=== PATIENT | female | born 1975 | race Caucasian/White ===

== ENCOUNTER → 2021-07-25 08:50 | Outpatient (CLI) | payer MEDICAID, SELFPAY ==
--- NOTE | 2021-07-25 | ECG_ITS ---
APPROVED REPORT Exam: Resting ECG HR:75 bpm ECG Measurements Heart Rate 75 AXES [place] 149 P 8 QRSd 89 QRS 15 QT 390 T 5 QTc 418 Conclusion SINUS RHYTHM WITH SINUS ARRHYTHMIA NORMAL ECG UNCONFIRMED REPORT Electronically signed by : Sha Desai MD 07/25/2021 17:55:15
--- NOTE | 2021-07-25 09:00 | XR_ITS ---
FINAL REPORT CLINICAL HISTORY: OSTEOARTHRITIS,OBESITY. Pre-bariatric surgery nutrition evaluation. Severe obesity BMI>40 FINDINGS: Two views of the chest were obtained. The heart size and pulmonary vascularity are within normal limits. The mediastinum is normal. No acute pulmonary abnormality is identified. There is no pneumothorax. The bony thorax is intact. IMPRESSION: No active cardiopulmonary disease. Reviewed, Interpreted and Dictated by Allan Maza III, MD Transcribed by Gregorio Woods Authenticated by Allan Maza III, MD on 07/25/2021 10:41:[address] [facility]
[2021-07-25 09:55] LABS: Basophils # 0.1 K/mm3 (0-0.2); Basophils % 1.3 % (0.1-2.0); Eosinophils # 0.1 K/mm3 (0.0-0.4); Eosinophils % 2.5 % (0.1-12.0); Hematocrit 41.6 % (37.0-47.0); Hemoglobin 13.7 g/dL (12.2-16.2); Lymphocytes # 1.5 K/mm3 (0.7-4.5); Lymphocytes % 26.6 % (10-50); Mean Corpuscular HGB Conc 32.9 g/dL (31.8-35.4); Mean Corpuscular Hemoglobin 30.9 pg (27.0-31.2); Mean Platelet Volume 7.2 fl (7.4-10.4); Monocytes # 0.3 K/mm3 (0.1-1.0); Monocytes % 5.4 % (1.7-9.3); Neutrophils # 3.6 K/mm3 (1.8-7.8); Neutrophils % 64.3 % (37.0-80.0); Platelet Count 383 K/mm3 (142-424); Red Blood Count 4.43 M/mm3 (4.20-5.40); Red Cell Distribution Width 14.3 % (11.5-17.5); White Blood Count 5.6 K/mm3 (4.8-10.8)
[2021-07-25 10:05] LABS: Alanine Aminotransferase 30 U/L (12-78); Albumin/Globulin Ratio 1.3 (1.1-1.8); Alkaline Phosphatase 65 U/L (38-126); Anion Gap 10.3 mEq/L (5-15); Aspartate Amino Transferase 28 U/L (14-36); Blood Urea Nitrogen 15 mg/dl (7-17); Calcium 9.1 mg/dl (8.4-10.2); Carbon Dioxide 27 mmol/L (22.0-30.0); Chloride 105 mmol/L (98-107); Chol/HDL Ratio 3.8 (1-3.5); Cholesterol 147 mg/dl (140-200); Estimated Glomerular Filt Rate 91 ml/min (>60); GFR (African American) 110 ML/MIN (>60); Glucose 97 mg/dl (74-100); HDL Cholesterol 39 mg/dl (40-60); Phosphorous 3.8 mg/dl (2.5-4.5); Potassium 4.3 mmoL/L (3.5-5.1); Sodium 138 mmol/L (136-145); Triglycerides 105 mg/dl (30-150); VLDL Cholesterol 21 mg/dL (0-40)
[2021-07-25 10:16] LABS: Direct LDL Cholesterol 79.31 mg/dL (100-129)
[2021-07-25 10:17] LABS: Intact Parathyroid Hormone 35.3 pg/mL (7.5-53.5)
[2021-07-25 10:22] LABS: 25-OH Vitamin D, Total 25.4 ng/mL (30-100)
[2021-07-25 10:31] LABS: Iron 87 ug/dL (37-170)
[2021-07-25 11:07] LABS: Ferritin 54.4 ng/ml (6.24-137)
[2021-07-25 11:13] LABS: Folate 5.47 ng/mL
[2021-07-26 12:13] LABS: Prealbumin 19 mg/dL (12-34)
[2021-07-30 02:07] LABS: Methylmalonic Acid 225 nmol/L (0-378)
[2021-08-03 01:09] LABS: Vitamin E Alpha Tocopherol 9.9 mg/L (7.0-25.1); Vitamin E Gamma Tocopherol 1.2 mg/L (0.5-5.5)
[2021-08-06 08:21] LABS: Vitamin B1 123.2 nmol/L (66.5-200.0)
[2021-08-06 11:17] LABS: Vitamin A 31.6 ug/dL (20.1-62.0)
== END ==
PROVIDERS: PCP Nurse Practitioner Family; Visit Provider Physician Assistant
DX: M17.9 Osteoarthritis of knee, unspecified (principal); E66.01 Morbid (severe) obesity due to excess calories; Z68.38 Body mass index [BMI] 38.0-38.9, adult; Z71.3 Dietary counseling and surveillance; E55.9 Vitamin D deficiency, unspecified
CPT/HCPCS: 36415; 71046; 80053; 80061; 82131; 82306; 82728; 82746; 83036; 83540; 83735; 83970; 84100; 84134; 84425; 84443; 84446; 84590; 85025; 93005

== ENCOUNTER → 2021-08-01 14:48 | Outpatient (CLI) | payer MEDICAID, SELFPAY ==
--- NOTE | 2021-08-01 14:49 | US_ITS ---
FINAL REPORT CLINICAL HISTORY: US TV GOLD BEATER for Pelvic Pain FINDINGS: US TRANSVAGINAL Transvaginal sonographic images of the pelvis were obtained. The uterus is enlarged measuring 10.4 x 7.2 x 6.1 cm. The endometrium is thickened measuring 15 mm. No uterine mass is identified. The right ovary measures 2.4 cm in length and left ovary measures 2.4 cm in length. Normal blood flow seen to the ovaries. Small follicles are present. There is a 1.7 cm probable complex cyst in the left ovary. There is a very small amount of free fluid which may be physiologic or reactive. IMPRESSION: Enlarged uterus. Thickened endometrium. Probable complex cyst in the left ovary. Reviewed, Interpreted and Dictated by Allan Maza III, MD Transcribed by Brooklynn Loza Authenticated by Allan Maza III, MD on 08/01/2021 04:36:51 PM [facility]
== END ==
PROVIDERS: PCP Nurse Practitioner Family; Visit Provider Obstetrics & Gynecology
DX: R10.2 Pelvic and perineal pain (principal)
CPT/HCPCS: 76830

== ENCOUNTER → 2021-08-24 08:40 | Outpatient (CLI) | payer MEDICAID, SELFPAY ==
--- NOTE | 2021-08-24 08:43 | XR_ITS ---
FINAL REPORT CLINICAL HISTORY: knee pain FINDINGS: LEFT KNEE: Three views of the left knee were obtained. There is no acute fracture or dislocation. There is mild degenerative change with mild medial compartment narrowing. There is no joint effusion. Soft tissues are unremarkable. IMPRESSION: Degenerative change with no acute bony abnormality. Reviewed, Interpreted and Dictated by Allan Maza III, MD Transcribed by Ramona Card Authenticated and [facility]
--- NOTE | 2021-08-24 08:43 | XR_ITS ---
FINAL REPORT CLINICAL HISTORY: knee pain FINDINGS: Three views of the right knee reveal no evidence of fracture or dislocation. The bony alignment is normal. There is mild degenerative change. There is no evidence of joint effusion. No localized soft tissue abnormality is identified. IMPRESSION: Degenerative with no acute abnormality identified. Reviewed, Interpreted and Dictated by Allan Maza III, MD Transcribed by Ramona Card Authenticated and [facility]
== END ==
PROVIDERS: PCP Nurse Practitioner Family; Visit Provider Orthopaedic Surgery
DX: M25.561 Pain in right knee (principal); M25.562 Pain in left knee
CPT/HCPCS: 73562

== ENCOUNTER 2021-08-24 11:03 | Outpatient (RCR) | payer MEDICAID, SELFPAY | END 2021-08-24 12:00 | disposition home or self-care (01) | LOC: PT 11:03 | PROVIDERS: Visit Provider Orthopaedic Surgery | DX: M25.562 Pain in left knee (principal); M25.561 Pain in right knee | CPT/HCPCS: 97760 ==

== ENCOUNTER → 2021-09-07 10:47 | Outpatient (CLI) | payer MEDICAID, SELFPAY ==
--- NOTE | 2021-09-07 | CA_ITS ---
APPROVED REPORT EXAM: Comprehensive 2D, Doppler, and color-flow Echocardiogram Financial Analyst Accountant: Jessica Solorzano RT(R) Ht: 5 ft 3 in Wt: 247lbs BSA: 2.11 BP: 138/85 mmHg Indications: SOA, obesity, hyperlipidemia, preop bariatric surgery. 2D Dimensions LVOT 2.21 cm (M/F) 1.5-2.5 LVEF (Vásquez's) 51.80 % F: 54 - 74 LV Volume 136.70 mL F: 46 - 106 LV Volume Index 64.78 mL/m2 F: 29 - 61 LA Volume 38.80 mL LA Volume Index 18.38 mL/m2 (M/F) 16-34 M-Mode Dimensions RVDd 3.18 cm (0.9-2.6) LA Diam 3.83 cm (1.9-4.0) LVDd 4.59 cm (3.5-5.7) Ao Diam 3.19 cm (2.0-3.7) LVDs 3.34 cm (3.5-5.7) IVSd 1.05 cm (0.6-1.1) PWd 1.01 cm (0.6-1.1) EF (Teich) 53.10% FS 27.20% EDV (Teich) 96.80 mL ESV (Teich) 45.40 mL LV Diastology E Decel Time 187.00 (160-240 msec) E/A Ratio 1.1 MED E' 9.10 (< 7 cm/sec) E'/MED E' Ratio 8.63 (>14) LAT E' 12.40 (<10 cm/sec) E/LAT E' Ratio 6.33 (>14) Mitral Valve MV E Max Layo. 79.00 (40-130 cm/s) MV A Velocity 70.00 (40-130 cm/s) E/A Ratio 1.12 MV Decel. Time 187.00 (160-240 ms) MV PHT 55.00 ms Tricuspid Valve TR P. Velocity 219.00 cm/s RAP Estimate 10.00 mmHg RVSP 29.30 mmHg Left Ventricle Left atrium is normal size, left ventricle is normal size, there is no concentric left ventricular hypertrophy, estimated ejection fraction 55% with no regional wall motion abnormality, diastolic parameters are within normal range. Right Ventricle Right atrium and right ventricle are normal size and contractility. Aortic Valve Aortic valve is grossly normal, there is no aortic stenosis or aortic insufficiency. Mitral Valve Mitral valve grossly normal, there is trace mitral regurgitation. Tricuspid Valve CalculationTricuspid grossly normal, there is trace tricuspid regurgitation, tricuspid regurgitation jet velocity is inadequate of the right ventricular systolic pressure. Pulmonic Valve Pulmonic valve is poorly visualized. Great Vessels Aortic root is normal size. Inferior vena cava is normal 7 normal inspiratory collapse. Pericardium No significant pericardial effusion noted. Conclusion 1. Normal left ventricular size, preserved left ventricular systolic function, estimated ejection fraction 55% with no regional wall motion abnormality, diastolic parameters are within normal range. 2. Trace mitral and tricuspid regurgitation. 3. No significant pericardial effusion. 4. Inferior vena cava is normal size with normal inspiratory collapse. Electronically signed by : Helder Paz MD 09/07/2021 13:46:10
== END ==
PROVIDERS: PCP Nurse Practitioner Family; Visit Provider Nurse Practitioner
DX: R06.09 Other forms of dyspnea (principal)
CPT/HCPCS: 93306

== ENCOUNTER 2021-10-10 09:00 | Outpatient (RCR) | payer MEDICAID, SELFPAY ==
--- NOTE | 2021-08-29 10:28 | HMH.PTOPEV ---
PT Outpatient Evaluation Rehab PT Outpatient Evaluation Start: 08/29/21 07:57 Freq: Status: Active Protocol: Document 08/29/21 07:59 REGINA (Rec: 08/29/21 10:27 REGINA [id number]) Electronically Signed By Bria Dumont, ARNEL 08/29/21 07:59 Outpatient Therapy Subjective History Subjective History Pt is a 46 y/o female that reports chronic L>R knee pain. 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 Pt reports she had 2 knee scopes on the right knee and has been receiving gel and cortisone injection for the past 3 years which give her about 6 months relief. Pt reports she recently had an xray showing mild degenerative changes of the inside of both knees. Pt reports she received gel injections and knee sleeves last week which have both helped. Pt denies current pain due to injections. Pt reports previous constant bilateral medial knee pain with catching /clicking and sense of instabiltiy with going down stairs and stepping on uneven surfaces. Pt reports she has 1 flight of stairs in her home and has to use a step to pattern due to pain/safety. Pt reports she also walks 1x week for 20-25 with pain following and is only able to stand ~10 minutes without increased pain. 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
--- NOTE | 2021-09-28 10:04 | HMH.RHREAS ---
Rehab Reassessment Rehab OP Re-assessment Start: 09/28/21 08:11 Freq: Status: Active Protocol: Document 09/28/21 08:12 REGINA (Rec: 09/28/21 09:56 REGINA [id number]) Electronically Signed By Brai Dumont, PT 09/28/21 08:12 Rehab Re-assessment Subjective Subjective Pt reports the worse her pain has been within the last week was 3/10 with going up/down stairs. Pt reports she still has some pain going down the stairs. Pt reports she feels that she has improved 50% since starting PT. Pt reports she is able to stand for 10 minutes but no longer until her knees ache. Pt reports she is performing her HEP sometimes. Objective Objective Notes Knee AROM: R -1 to 115, L 0- 115 LE MMT: hip flexion 4/5, knee ext 5/5, knee flex 4+/5, DF 5/ 5, hip abd/ext 4/5 Stair navigation: reciprocal pattern with one HR with one minor LOB with self correction , antalgic gait and hesistancy Assessment Progress Assessment Progressing as Expected Assessment Notes Given pathology of condition involving knee arthritis pt is progressing as expected. Pt met most STG with exception of standing tolerance, traversing stairs, and tenderness to palpation. Pt would continue to benefit from skilled PT to further improve LE strength and balance/ proprioception to further improve functional activity tolerance for active lifestyle . Patient goals met ST/11 Goals Not Met TTP, traversing stiars with reciprocal pattern safely, standing tolerance Revised Goals Knee AROM to 0-115 since equal bilaterally for LTG Plan Plan Continue POC Frequency of Therapy 2 Duration of therapy 4 Time and Billing Re-Eval Time
== END 2021-10-10 09:05 | disposition home or self-care (01) ==
LOC: PT 09:00
PROVIDERS: PCP Nurse Practitioner Family; Visit Provider Orthopaedic Surgery
DX: M25.562 Pain in left knee (principal); M25.561 Pain in right knee
CPT/HCPCS: 97010; 97014; 97110; 97140; 97163; 97164; 97530; 97535; G0283

== ENCOUNTER → 2022-05-07 16:33 | Outpatient (CLI) | payer MEDICAID, SELFPAY ==
--- NOTE | 2022-05-07 16:33 | MM_ITS ---
PROCEDURE INFORMATION: Exam: MG Bilateral Screening 3D Mammography Exam date and time: 05/07/2022 4:23 PM Age: 46 years old Clinical indication: Screening. Her maternal great grandmother had breast cancer. TECHNIQUE: Imaging protocol: Bilateral Screening tomosynthesis and 2D mammography including computer-aided detection (CAD) when performed. COMPARISON: 1. MG MM MAMMO DIGITAL IRENE SCREEN BILAT 01/29/2021 3:40 PM 2. MG MM MAMMO DIGITAL IRENE SCREEN BILAT 01/14/2020 11:11 AM 3. MG MM MAMMO DIGITAL IRENE SCREEN BILAT 01/06/2019 9:00 AM FINDINGS: MAMMOGRAPHY: Breast composition: The breasts are heterogeneously dense, which may obscure small masses. Mass: None. Architectural distortion: None. Calcifications: No suspicious calcifications. Asymmetric density: None. Skin thickening: None. Axillary adenopathy: None. IMPRESSION: No mammographic evidence of malignancy. Annual screening is recommended unless otherwise clinically indicated. ASSESSMENT: BI-RADS Category 1: Negative
== END ==
PROVIDERS: PCP Nurse Practitioner Family; Visit Provider Obstetrics & Gynecology
DX: Z12.31 Encounter for screening mammogram for malignant neoplasm of breast (principal)
CPT/HCPCS: 77063; 77067

== ENCOUNTER 2023-02-09 13:51 | Emergency (ER) | payer MEDICAID, SELFPAY ==
[2023-02-09 13:53] VITALS: BP 124/79; PULSE 67; RESP 20; TEMP 36.8; O2SAT 98; BMI 34.5
--- NOTE | 2023-02-09 14:16 | PC.NURSE ---
Dr. Fischer at [facility] for pt eval
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
[2023-02-09 15:15] VITALS: BP 129/79; PULSE 77; RESP 18; TEMP 36.6
== END 2023-02-09 15:19 | disposition home or self-care (01) ==
PROVIDERS: Emergency Provider Emergency Medicine; PCP Nurse Practitioner Family
DX: S01.81XA Laceration without foreign body of other part of head, initial encounter (principal); W22.8XXA Striking against or struck by other objects, initial encounter; Z23 Encounter for immunization
CPT/HCPCS: 12011; 90715; 96372; 99283

== ENCOUNTER → 2023-03-19 12:29 | Outpatient (CLI) | payer MEDICAID, SELFPAY ==
--- NOTE | 2023-03-19 12:39 | ECG_ITS ---
APPROVED REPORT Exam: Resting ECG HR:56 bpm ECG Measurements Heart Rate 56 AXES NH 143 P 48 QRSd 92 QRS 75 QT 408 T 64 QTc 401 Conclusion SINUS BRADYCARDIA BORDERLINE ECG UNCONFIRMED REPORT Electronically signed by : Sha Desai MD 03/21/2023 08:02:21
== END ==
LOC: RT 12:29
PROVIDERS: PCP Nurse Practitioner Family; Visit Provider Orthopaedic Surgery
DX: Z01.818 Encounter for other preprocedural examination (principal); M17.0 Bilateral primary osteoarthritis of knee
CPT/HCPCS: 93005

== ENCOUNTER → 2023-03-20 07:07 | Outpatient (CLI) | payer MEDICAID, SELFPAY ==
[2023-03-20 07:22] LABS: Basophils % 0.5 % (0.1-2.0); Eosinophils # 0.1 K/mm3 (0.0-0.4); Eosinophils % 1.1 % (0.1-12.0); Hematocrit 38.1 % (37.0-47.0); Hemoglobin 12.9 g/dL (12.2-16.2); Lymphocytes # 1.3 K/mm3 (0.7-4.5); Lymphocytes % 18.7 % (10-50); Mean Corpuscular Hemoglobin 33.7 pg (27.0-31.2); Mean Corpuscular Volume 99.2 fl (81-99); Mean Platelet Volume 7.5 fl (7.4-10.4); Monocytes # 0.4 K/mm3 (0.1-1.0); Monocytes % 6.1 % (1.7-9.3); Neutrophils % 73.6 % (37.0-80.0); Platelet Count 308 K/mm3 (142-424); Red Blood Count 3.84 M/mm3 (4.20-5.40); Red Cell Distribution Width 13.3 % (11.5-17.5); White Blood Count 6.8 K/mm3 (4.8-10.8)
[2023-03-20 07:35] LABS: Chloride 102 mmol/L (98-107); Potassium 4.2 mmoL/L (3.5-5.1); Sodium 137 mmol/L (136-145)
[2023-03-20 07:38] LABS: Alanine Aminotransferase 27 U/L (12-78); Albumin Level 3.9 g/dl (3.5-5.0); Albumin/Globulin Ratio 1.3 (1.1-1.8); Alkaline Phosphatase 70 U/L (38-126); Anion Gap 10.2 mEq/L (5-15); Aspartate Amino Transferase 32 U/L (14-36); Bilirubin,Total 0.6 mg/dl (0.2-1.3); Blood Urea Nitrogen 24 mg/dl (7-17); Calcium 8.6 mg/dl (8.4-10.2); Carbon Dioxide 29 mmol/L (22.0-30.0); Estimated Glomerular Filt Rate 90 ml/min (>60); GFR (African American) 109 ML/MIN (>60); Globulin 2.9 g/dL (1.3-3.2); Glucose 92 mg/dl (74-100); Total Protein,Serum 6.8 g/dl (6.3-8.2)
== END ==
LOC: LAB 07:08
PROVIDERS: PCP Nurse Practitioner Family; Visit Provider Orthopaedic Surgery
DX: M17.0 Bilateral primary osteoarthritis of knee (principal); E11.9 Type 2 diabetes mellitus without complications
CPT/HCPCS: 36415; 80053; 83036; 85025

== ENCOUNTER 2023-03-25 12:34 | Outpatient (CLI) | payer MEDICAID, SELFPAY ==
--- NOTE | 2023-03-25 12:39 | XR_ITS ---
FINAL REPORT CLINICAL HISTORY: Pre Op. SOA ON EXERTION COMPARISON: None FINDINGS: Two views of the chest were obtained. The heart size and pulmonary vascularity are within normal limits. The mediastinum is normal. No acute pulmonary abnormality is identified. There is no pneumothorax. The bony thorax is intact. IMPRESSION: No active cardiopulmonary disease. Reviewed, Interpreted and Dictated by Allan Maza III, MD Transcribed by Svitlana Leija Authenticated and [facility]
== END 2023-03-25 23:59 ==
LOC: RAD 12:35
PROVIDERS: PCP Nurse Practitioner Family; Visit Provider Orthopaedic Surgery
DX: Z01.818 Encounter for other preprocedural examination (principal); M17.0 Bilateral primary osteoarthritis of knee
CPT/HCPCS: 71046

== ENCOUNTER 2023-04-01 06:26 | Observation (INO) | payer MEDICAID, SELFPAY ==
[2023-03-31 09:40] VITALS: BMI 35.4
[2023-04-01] VITALS (19 sets, daily range): BP systolic 93–136; BP diastolic 48–78; PULSE 62–89; RESP 14–22; TEMP 35.7–36.8; O2SAT 94–100
[2023-04-01] MEDS: LACTATED RINGERS 1000ML 1,000 ML 25 ML IV (06:19)
[2023-04-01 06:29] LABS: Urine Pregnancy, HCG Qual. Negative (Negative)
--- NOTE | 2023-04-01 06:31 | SUR.PREOP ---
clitoral piercing present per pt.
--- NOTE | 2023-04-01 06:33 | SUR.PREOP ---
meds to beds form and face sheet faxed to clinic pharmacy
--- NOTE | 2023-04-01 07:31 | EXP.ANES.CKL ---
[facility] Disclaimer: The information contained in this section may have been updated after the patient was seen, as this information can be updated by other users. Medical History Endometriosis Endometriosis determined by laparoscopy History of COVID-19 Pre-op testing Primary osteoarthritis of knees, bilateral Skin cancer Surgical History H/O gastric sleeve H/O tubal ligation History of section History of cholecystectomy History of tonsillectomy Family History Other Alcoholism Asthma Cancer Coronary artery disease Diabetes FHx: mental illness Hypertension Thyroid disorder Social History Smoking Status: Former smoker alcohol intake: current substance use type: denies use current occupational status: employed Travel in the last 8 weeks: None [facility] Anesthesia Checklist Patient Identification Patient Identification: Arm Band, Verbal (Name & ) and Other: (Boyfriend) Structural Data Admitted From: Home Planned Operative Procedure/s: LEFT TKA Consent for Planned Operative Procedure(s) Verified: Yes Verified Documents: Surgical Consent and History and Physical NPO Status Verified Time NPO: 21:00 Chart Verification Results Verified: CBC, BMP, ECG, Chest Xray and HCG Additional verifications Patient : No Anesthesia Reactions: No Hx Blood Transfusions: No Cardiovascular Assessment Heart Sounds: S1 & S2 Pulse Rhythm: Irregular Peripheral Edema: No Airway Assessment Mallampati Score:: Class II C-Spine Mobility Assessed: Yes (FROM) TMJ Mobility Assessed: Yes Dentition: Good Dentition (Nothing loose per pt.) Neurological Assessment Level of Consciousness: Awake, Alert, Appropriate and Follows Commands Hx Seizures: No Numbness or tingling in extremities: No Anesthesia Plan Anesthesia Risk discussed: Yes Anesthesia Plan: Verified ASA Class: II Anesthesia Type: Spinal (+ MAC + Post-op nerve block)
[2023-04-01] MEDS: CEFAZOLIN SODIUM 2 GM in 0.9 % SODIUM CHLORIDE 100 ML IV ×3 (07:50→20:02)
[2023-04-01] MEDS: MORPHINE PF 10 MG/10ML AMP (08:31)
[2023-04-01] MEDS: ROPIVACAINE 0.5% 30ML VIAL 150 MG (08:31)
[2023-04-01] MEDS: SODIUM CHLORIDE 0.9% IV ×2 (08:32→09:14)
[2023-04-01] MEDS: TRANEXAMIC ACID IV ×2 (08:32→09:14)
--- NOTE | 2023-04-01 09:51 | EXP.OP.NOTE ---
Date of procedure: 04/01/23 Pre-op Diagnosis:: Left knee osteoarthritis Post-op Diagnosis:: Left knee osteoarthritis Procedure performed:: Left total knee arthroplasty Surgeon:: Russ Friedman MD PHOTO CHECKER AND ASSEMBLER:: Other Anesthesia: regional, local and spinal Estimated blood loss (mL): 5 Clinical Note:: Yuki is a very pleasant 47-year-old female with activity limiting left knee pain secondary to osteoarthritis that is affecting her quality of life. Left knee x-rays August 2021 revealed moderate tricompartmental degenerative changes with complete loss of medial joint space and marginal osteophyte formation with varus deformity. Avoids anti-inflammatories as she had a gastric sleeve surgery October 2021 and has lost significant weight since that procedure. History of 2 right knee scopes but no prior surgery on the left knee. No relief with Monovisc injections in April 2022. Cortisone injections provided temporary relief. We discussed all the risks, benefits and alternatives to left total knee replacement and she agreed to proceed. Surgical consent form was signed. Operative findings:: Left knee severe tricompartmental degenerative changes with complete loss of medial joint space, marginal osteophyte formation and varus deformity. Operative note:: The patient was seen in the preoperative holding area. The left knee was marked to confirm the correct operative site. She was seen by anesthesia. She received Ancef 2 g IV prophylactic antibiotics within 1 hour of incision time. She also received a gram of IV TXA just prior to the incision and as we were closing to help minimize bleeding. She was brought back to the operating room. Spinal anesthesia was performed without difficulty and IV sedation given throughout the case. She was placed in the supine position and all bony prominences were well-padded. Nonsterile tourniquet was applied to the left thigh. The left lower extremity was prepped and draped in the usual sterile fashion. Timeout performed to confirm left total knee replacement on patient Yuki Kerns. The left lower extremity was exsanguinated with an Esmarch and tourniquet was inflated to 250mmHg. With the knee flexed a midline incision was made with a 10 blade scalpel. Full-thickness medial and lateral flaps were elevated. Adequate hemostasis maintained with Bovie electrocautery. A medial parapatellar arthrotomy was made with a fresh 10 blade scalpel. The patella was everted. Infrapatellar fat pad and anterior femoral fat pads were excised with the Bovie. Marginal osteophytes were removed with a rongeur. A medial release was performed with the Bovie for this varus knee. Z retractors were placed medially and laterally. We then drilled the distal femur and placed the intramedullary distal femoral cutting guide for a 5 degree valgus cut removing approximately one centimeter of bone from the distal femur. This cut was made with the oscillating saw and cut bone was removed. The femur was then sized to a size 5 set at 3 degrees of external rotation. A 4-in-1 cutting guide was then pinned in place. The anterior and posterior cuts were made as were the chamfer cuts with the oscillating saw and cut bone was removed. We then placed a PCL retractor and medial and lateral Hohmann retractors and turned our attention to the tibia. Using the extramedullary tibial cutting guide set at a 3 degree posterior slope we excised approximately 5 mm of bone from the medial side and a centimeter from the high lateral side with the oscillating saw. We then excised medial and lateral menisci and posterior osteophytes. With a 9 mm block we achieved full extension with excellent alignment. We then placed a size 3 tibial tray centered off the medial third of the tibial tubercle. This was pinned in place and the punch was utilized. We then placed a size 5 trial femur and decided to use a narrow 5 for the final implant. We made the box cut with the reamer and punch. We then trialed with a 9 mm poly, the 5 femur and 3 tibial tray. With these trial components in place we achieved full extension and flexion with excellent alignment and stable throughout. We then made the patellar cut. Patella was sized to 20 mm in thickness. We made a 7 mm patellar cut with the oscillating saw and then sized the patella to a 29. We made the drill holes and with the 29 thin trial button in place there was excellent tracking. Trial components were removed and final components opened on the back table. The knee was irrigated with Pulsavac lavage and then thoroughly dried. A bone plug was placed in the distal femoral drill hole. Cement was mixed on the back table. Once the cement was ready we applied cement to the cut tibial and femoral surfaces and impacted in place the final size 3 tibial tray and 5 narrow femur. Excess cement was removed. We placed the 9 mm poly and it was seen to be fully engaged in the tibial tray. The knee was placed in extension. We applied cement to the cut patellar surface and held in place the 29 thin patellar button with the patellar clamp. The knee was left in extension while the cement cured. Once the cement was fully cured we irrigated the knee with a dilute Betadine solution. We then irrigated the knee with the Pulsavac lavage. We proceeded with closure. The deep fascia was closed with #1 strata fix barbed suture. The dermis was closed with interrupted 2-0 Vicryl sutures. The skin was closed with 3-0 subcuticular barbed suture. We then applied a Prineo mesh dressing with Dermabond, 4 x 4's, ABD, soft roll and Robbie bandage. Tourniquet was deflated at 79 minutes. Anesthesia reversed without difficulty and she was transferred to recovery in stable condition. All sponge and needle counts were correct. Postoperative plan: The patient will be admitted to the hospitalist service (PCP is Kerry Meraz ENTERPRISE RESOURCE PLANNER in Dr. Desai's office, he is out of town so discussed with Dr. Moura who will admit). Mobilize as tolerated with physical and Occupational Therapy. 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 Plan likely discharge home tomorrow with oxycodone to take as needed for pain and aspirin for DVT prophylaxis. Follow-up in the office next Tuesday 04/11 for her first postoperative appointment. Tourniquet time (min): 79 Condition: stable Disposition: PACU Specimens:: No specimens. Implants used include Ferrari [employer] Nephew posterior stabilized total knee arthroplasty with a size 5 narrow femur, 3 tibia, 9 polyethylene and 29 thin patella. Complications:: None
--- NOTE | 2023-04-01 10:04 | EXP.ANES.I ---
[facility] Anesthesia Record Part I Anesthesia Record I Intake, IV Amount: 1,300 Hydration: Adequate Estimated blood loss (mL): 100 Urine output (mL): 0 Blood Products used (#): none Blood Pressure: 93/48 SaO2: 97 Pulse Rate: 89 Airway Patency: Patent Respiratory Rate: 22 Temperature: 96.3 F Patient is:: Awake (Talking) and Stable Stable to PACU at:: 09:49
--- NOTE | 2023-04-01 10:11 | XR_ITS ---
FINAL REPORT CLINICAL HISTORY: Status post left knee replacement FINDINGS: 2 views of the left knee were obtained. There has been total left knee arthroplasty. The hardware appears intact. There is soft tissue swelling and soft tissue air. IMPRESSION: Expected postoperative changes from total left knee arthroplasty. Reviewed, Interpreted and Dictated by Allan Maza III, MD Transcribed by Gregorio Woods Authenticated and [facility]
[2023-04-01] MEDS: KETOROLAC 30MG/ML VIAL 15 MG IV (11:47)
[2023-04-01] MEDS: OXYCODONE 5MG IMMEDIATE RELEASE TABLET 5 MG PO ×2 (12:24→18:45)
--- NOTE | 2023-04-01 12:47 | EXP.HP ---
History of Present Illness *Admission Date: 04/01/23 *Reason for visit:: Primary osteoarthritis of left knee, s/p left TKA *History of present illness: Ms. Kerns is a 47-year-old female with activity limiting left knee pain secondary to osteoarthritis that is affecting her quality of life. Left knee x-rays August 2021 revealed moderate tricompartmental degenerative changes with complete loss of medial joint space and marginal osteophyte formation with varus deformity. Given her history of gastric sleeve in October 2021 with subsequent weight loss, she avoids anti-inflammatories out of concern for possible gastritis. Orthopedics has evaluated her knees numerous times with history of 2 right knee scopes but no prior surgery on the left knee. She has received multiple joint injections, no benefit in April 2022 with viscous injection. Cortisone injections provide temporary relief. Given primary osteoarthritis and degeneration, orthopedics recommended left total knee replacement. Surgery performed today with no complication. Patient tolerated procedure well. Medicine was consulted after procedure for admission overnight monitoring. After arriving to the floor, patient's pain is stable at this time. Neurovascularly intact in her left foot distal to surgical site. Stable on room air. No other complaints. [facility] Disclaimer: The information contained in this section may have been updated after the patient was seen, as this information can be updated by other users. Medical History Endometriosis Endometriosis determined by laparoscopy History of COVID-19 Pre-op testing Primary osteoarthritis of knees, bilateral Skin cancer Surgical History H/O gastric sleeve H/O tubal ligation History of section History of cholecystectomy History of tonsillectomy Family History Diabetes Coronary artery disease Alcoholism FHx: mental illness Cancer Hypertension Thyroid disorder Asthma Social History Smoking Status: Former smoker alcohol intake: current substance use type: denies use current occupational status: employed Travel in the last 8 weeks: None Review of Systems Review of Systems Review of systems (narrative): 14 point review of systems performed, pertinent positives and negatives as per HPI Meds Home Medications and Allergies Home Medications Medication Instructions Recorded Confirmed Type escitalopram oxalate 10 mg tablet 10 mg PO DAILY 06/09/22 01/09/24 History (Lexapro) aspirin 325 mg tablet 325 mg PO AM DVT prophylaxis 04/01/23 04/01/23 History oxycodone 5 mg tablet 5 mg PO Q4H PRN pain #30 tabs 04/01/23 04/01/23 Rx New Prescriptions to Start Prescriptions: oxycodone 5 mg tablet Allergies Allergy/AdvReac Type Severity Reaction Status Date / Time No Known Allergies Allergy Verified 04/01/23 06:21 Exam Data for Last 24 hours Vital signs and Labs for Last 24 Hours: Temp Pulse Resp BP Pulse Ox O2 Del Method 97.7 F 74 18 105/76 L 100 Room Air 04/01/23 11:15 04/01/23 11:15 04/01/23 11:15 04/01/23 11:15 04/01/23 11:15 04/01/23 11:15 Laboratory Results - last 24 hr 04/01/23 06:10: Urine HCG, Qual Negative I & O for Last 24 hours: Intake & Output 03/29/23 03/30/23 03/31/23 04/01/23 23:59 23:59 23:59 23:59 Intake Total 1300 / 1300 Balance 1300 / 1300 Weight 90.718 kg Constitutional Constitutional: no acute distress, obese and cooperative *Routine HEENT Exam Head: Present normocephalic Eye: Present EOMI and PERRL ENT: Present mucous membranes moist *Routine Neck Exam Neck: Present supple; Absent lymphadenopathy *Routine Respiratory Exam Respiratory: Present CTA bilaterally *Routine Cardiovascular Exam Cardiovascular: Present RRR *Routine Abdominal Exam Abdominal: Present soft and normoactive bowel sounds; Absent tenderness *Routine Rectal Exam Rectal:: deferred *Routine Genitalia Exam Genitalia:: deferred *Routine Extremities Exam Extremities: Absent cyanosis, clubbing or edema Comments: Left knee in postsurgical wrap, neurovascularly intact in feet *Routine Skin Exam Skin: Present warm; Absent rash *Routine Neurological Exam Neurological: Present alert, oriented X3 and moving all extremities; Absent altered mental status Assessment and Plan *Assessment and plan (1) Primary osteoarthritis of knees, bilateral: Status: Acute Category: Medical Code(s): M17.0 - Bilateral primary osteoarthritis of knee (2) Hx of total knee arthroplasty: Status: Acute Category: Surgical Code(s): Z96.659 - Presence of unspecified artificial knee joint (3) Obesity (BMI 35.0-39.9 without comorbidity): Status: Acute Category: Medical Code(s): E66.9 - Obesity, unspecified Plan 47-year-old female with primary osteoarthritis of left knee, status post left TKA. Discussed case with orthopedic surgeon, request admission for monitoring overnight for pain control, initiation of DVT prophylaxis, eval by therapy. Medicine agreed to admit. Problems addressed as follows: Primary osteoarthritis of left knee Left TKA Left knee severe tricompartmental degenerative changes with complete loss of medial joint space, marginal osteophyte formation and varus deformity. -Procedure tolerated well. Pain control per orthopedics with oxycodone, Toradol, ice pack. -PT and OT evaluation pending, Plan for outpatient therapy -DVT prophylaxis with aspirin 325 mg once daily -Remained stable overnight, anticipate discharge tomorrow Anxiety: Continue home medication with formulary conversion to citalopram 20 mg daily Obesity complicates all aspects of her care Full code Regular diet
--- NOTE | 2023-04-01 14:04 | HMH.OTEV ---
OT Inpatient Evaluation Rehab OT IP Evaluation Start: 04/01/23 10:11 Freq: ONCE Status: Active Protocol: Document 04/01/23 13:48 PLACIDOEFRAIN (Rec: 04/01/23 14:04 LOCO [id number]) Rehab OT IP Assessment Subjective History Yuki is a very pleasant 47-year-old female with activity limiting left knee pain secondary to osteoarthritis that is affecting her quality of life. Left knee x-rays August 2021 revealed moderate tricompartmental degenerative changes with complete loss of medial joint space and marginal osteophyte formation with varus deformity. Avoids anti-inflammatories as she had a gastric sleeve surgery October 2021 and has lost significant weight since that procedure. History of 2 right knee scopes but no prior surgery on the left knee. No relief with Monovisc injections in April 2022. Cortisone injections provided temporary relief. We discussed all the risks, benefits and alternatives to left total knee replacement and she agreed to proceed. Surgical consent form was signed. Operative findings:: Left knee severe tricompartmental degenerative changes with complete loss of medial joint space, marginal osteophyte formation and varus deformity. Patient lives with in 1 story home with 2-3 DARIAN. Independent with all ADLs and fx'l mobility prior to surgery . Subjective I would like to get up and go to the bathroom. Instructed Patient on safety awareness to perform bed mobility, transfers, fx'l mobility, LB drsg, toileting and grooming/hygiene with usage of RW requiring Min A/ CGA. No LOB noted. Educated Patient re: WBAT. Teach back successful. Left patient sitting upright in chair at end of session. Objective Patient Orientation Person Right Upper Extremity Gross ROM WFL Left Upper Extremity Gross ROM WFL Bed Mobility bed mobility - supine/sit Assist Level Contact Guard/Hand Hold Transfer Training Sit/Stand/Step Transfer,Sit/ Stand/Pivot Transfer Assist Level Minimal x 1 (25% assist) Chair Transfer Ability Minimal x 1 (25% assist) Chair Transfer Technique Sit to/from Ambulatory Chair Transfer Assistive Devices Rolling Walker Lower Body Dressing Ability Minimal Assistance Upper Body Dressing Ability Minimal Assistance Overall Commode/Toilet Transfer Ability Standby Assistance Commode/Toilet Transfer Technique Sit to/from Ambulatory Commode/Toilet Transfer Assistive Grab Bars Devices Rehab OT IP prob,goals,plan Problems Date of Evaluation: 04/01/23 OT IP Problems Bed Mobility,Transfers,Balance ,Self care,Safety Rehab Potential Rehab Potential Good Equipment Needs Assistive Devices Rolling / Wheeled Walker Plan OT intervention Plan Bed Mobility,Transfers,Balance ,Self care,Safety,Therapeutic Exercise OT Plan Frequency Daily Duration LOS Discharge Goals Bed Mobility Ability Assistance x1 Sit to Stand Chair Transfer Ability Supervision/Stand by Chair Transfer Ability Supervision/Stand by Chair Transfer Technique Sit to/from Ambulatory Chair Transfer Assistive Devices Rolling Walker Upper Body Dressing Ability Standby Assistance Performing Toilet Hygiene Ability Independent Overall Commode/Toilet Transfer Ability Standby Assistance Commode/Toilet Transfer Technique Sit to/from Ambulatory Discharge Plan OT Discharge Plan Patient to return home after medical d/c. REcommend OP therapy setting. Patient to continue to be seen here at [facility] for IP therapy. Eval Complexity Eval Charge Codes 67089 - Low Complexity PHYSICIAN CERTIFICATION: I certify the specified therapy services for Yuki Mosleynk are required, authorized, and reviewed every 30 days.
--- NOTE | 2023-04-01 14:59 | HMH.PTEV ---
Physical Therapy Evaluation Rehab PT IP Evaluation Start: 04/01/23 10:11 Freq: ONCE Status: Active Protocol: Document 04/01/23 14:45 REGINA (Rec: 04/01/23 14:59 REGINA [id number]) Subjective/History History History Pt is a 47 y/o female who underwent L TKA performed on secondary to osteoarthritis. No complications noted following the surgery. Medical History: Endometriosis , Endometriosis determined by laparoscopy, History of COVID- 19, Pre-op testing, Primary osteoarthritis of knees, bilateral, Skin cancer Subjective Subjective Pt reports 4/10 left knee pain . Pt reports she has most sensation in her LLE and is able to move her toes/leg. Pt reports she lives at home in a single-story home with 3-4 steps to enter. Pt reports she lives with her and children who are willing to drive her to doctor/PT appointments and help her as needed following surgery. Pt reports prior to surgery, she was independent with all ADLs, iADLs and ambulation. Pt reports she does not have a walker at home. New diagnosis of cancer in past 12 No months? Rehab PT IP Eval Objective Appearance Patient Behavior Appropriate,Cooperative Patient Orientation Person,Place,Name,Birthday Difficulty following instructions none Speech Pattern Clear,Appropriate Ambulation Patient Able to Ambulate Yes Ambulation Observation IP General Gait Pattern Observation Antalgic Gait,Decrease Weight Bear (L),Decrease Stride Lngth (L) Ambulation Distance (feet) 25 Ambulation Assistive Device Rolling Walker Ambulation Ability Contact Guard/Hand Hold Balance Ability to Arise Able, uses arms to help Sitting Balance Steady, safe Standing Balance Steady, wide stance Dynamic Sitting Balance Ability Good Dynamic Standing Balance Ability Good Transfers Bed Transfer Ability Supervision/Stand by Chair Transfer Ability Contact Guard/Hand Hold Sit to Stand Bed Transfer Ability Contact Guard/Hand Hold Sit to Stand Chair Transfer Ability Contact Guard/Hand Hold Rehab PT IP prob,goals,plan Problems Date of Evaluation: 04/01/23 PT IP Problems Transfers,Gait,Balance,Self care,Safety Rehab Potential Rehab Potential Good Equipment Needs Assistive Devices Rolling / Wheeled Walker Plan PT Intervention Plan Transfers,Gait,Balance,Self care,Safety,Therapeutic Exercise PT Plan Frequency BID Duration LOS Discharge Goals Bed Transfer Ability Independent Sit to Stand Chair Transfer Ability Supervision/Stand by Ambulation Assistive Device Rolling Walker Ambulation Distance (feet) 45 Discharge Plan PT Discharge Plan Pt would benefit from skilled PT while admitted to [facility]. Pt is appropriate to return home with family assist and attend outpatient physical therapy once deemed medically stable by MD. Pt educated to use rolling walker WBAT with all ambulation upon return home to decrease fall risk. Pt educated on proper positioning of LE with rest and proper gait mechanics with RW. Pt provided with written/ illustrated instructions of HEP to perform upon discharge. Eval Complexity Eval Charge Codes 41005 - Low Complexity PHYSICIAN CERTIFICATION: I certify the specified therapy services for Yuki Kerns are required, authorized, and reviewed every 30 days.
[2023-04-01] MEDS: MORPHINE 2MG/ML SYRINGE 2 MG IV ×2 (16:10→20:02)
--- NOTE | 2023-04-01 18:48 | PC.NURSE ---
patient new admit from PACU today. Patient had a left total knee replacement. Patient's vss and pain is controlled with prn pain mediscations. Patient A&ox4 and has worked with PT.
[2023-04-02] VITALS: BP 110/68; PULSE 64; RESP 16; TEMP 36.8
[2023-04-02] MEDS: OXYCODONE 5MG IMMEDIATE RELEASE TABLET 5 MG PO ×4 (01:36→12:10)
[2023-04-02 04:00] VITALS: BP 116/64; PULSE 58; RESP 16; TEMP 36.9; O2SAT 97; BMI 38.7
[2023-04-02 06:45] LABS: Alanine Aminotransferase 27 U/L (12-78); Albumin/Globulin Ratio 1.1 (1.1-1.8); Alkaline Phosphatase 59 U/L (38-126); Anion Gap 3.9 mEq/L (5-15); Aspartate Amino Transferase 31 U/L (14-36); Basophils % 0.4 % (0.1-2.0); Bilirubin,Total 0.8 mg/dl (0.2-1.3); Blood Urea Nitrogen 13 mg/dl (7-17); Calcium 7.8 mg/dl (8.4-10.2); Carbon Dioxide 30 mmol/L (22.0-30.0); Chloride 103 mmol/L (98-107); Creatinine Clearance Estimated 185 mL/min (50-200); Eosinophils % 0.3 % (0.1-12.0); Estimated Glomerular Filt Rate 108 ml/min (>60); GFR (African American) 131 ML/MIN (>60); Globulin 2.7 g/dL (1.3-3.2); Glucose 96 mg/dl (74-100); Hematocrit 33.2 % (37.0-47.0); Lymphocytes # 1.5 K/mm3 (0.7-4.5); Lymphocytes % 16.5 % (10-50); Mean Corpuscular HGB Conc 33.2 g/dL (31.8-35.4); Mean Corpuscular Volume 102.4 fl (81-99); Mean Platelet Volume 7.5 fl (7.4-10.4); Monocytes # 0.5 K/mm3 (0.1-1.0); Monocytes % 6.2 % (1.7-9.3); Neutrophils # 6.7 K/mm3 (1.8-7.8); Neutrophils % 76.5 % (37.0-80.0); Platelet Count 274 K/mm3 (142-424); Potassium 3.9 mmoL/L (3.5-5.1); Red Blood Count 3.24 M/mm3 (4.20-5.40); Red Cell Distribution Width 13.6 % (11.5-17.5); Sodium 133 mmol/L (136-145); Total Protein,Serum 5.7 g/dl (6.3-8.2); White Blood Count 8.7 K/mm3 (4.8-10.8)
--- NOTE | 2023-04-02 07:39 | P.DS_ITS ---
General Admission date:: 04/01/23 Discharge date: 04/02/23 HPI HPI HPI: Ms. Kerns is a 47-year-old female with activity limiting left knee pain secondary to osteoarthritis that is affecting her quality of life. Left knee x-rays August 2021 revealed moderate tricompartmental degenerative changes with complete loss of medial joint space and marginal osteophyte formation with varus deformity. Given her history of gastric sleeve in October 2021 with subsequent weight loss, she avoids anti-inflammatories out of concern for possible gastritis. Orthopedics has evaluated her knees numerous times with history of 2 right knee scopes but no prior surgery on the left knee. She has received multiple joint injections, no benefit in April 2022 with viscous injection. Cortisone injections provide temporary relief. Given primary osteoarthritis and degeneration, orthopedics recommended left total knee replacement. Surgery performed today with no complication. Patient tolerated procedure well. Medicine was consulted after procedure for admission overnight monitoring. After arriving to the floor, patient's pain is stable at this time. Neurovascularly intact in her left foot distal to surgical site. Stable on room air. No other complaints. Hospital Course Hospital Course Hospital Course: 47-year-old female with primary osteoarthritis of left knee, status post left TKA. Discussed case with orthopedic surgeon, request admission for monitoring overnight for pain control, initiation of DVT prophylaxis, eval by therapy. Medicine agreed to admit. Did well overnight. Stable for discharge home with plan for outpatient therapy. Problems addressed as follows: Primary osteoarthritis of left knee Left TKA Left knee severe tricompartmental degenerative changes with complete loss of medial joint space, marginal osteophyte formation and varus deformity. -Procedure tolerated well. Pain control per orthopedics with oxycodone, Toradol, ice pack. No events overnight. Will have patient follow-up as an outpatient with PT and OT. Continue DVT prophylaxis with aspirin 325 mg daily. Anxiety: Continue home medication with formulary conversion to citalopram 20 mg daily Follow-up with orthopedics as scheduled. Exam Data for Last 24 hours Vital signs and Labs for Last 24 Hours: Temp Pulse Resp BP Pulse Ox O2 Del Method 98.4 F 58 L 16 116/64 97 Room Air 04/02/23 04:00 04/02/23 04:00 04/02/23 04:00 04/02/23 04:00 04/02/23 04:00 04/02/23 06:49 Laboratory Results - last 24 hr 04/02/23 05:36: WBC 8.7, RBC 3.24 L, Hgb 11.0 L, Hct 33.2 L, MCV 102.4 H, MCH 34.0 H, MCHC 33.2, RDW 13.6, Plt Count 274, MPV 7.5, Neut % (Auto) 76.5, Lymph % (Auto) 16.5, [place] % (Auto) 6.2, Eos % (Auto) 0.3, Baso % (Auto) 0.4, Neut # (Auto) 6.7, Lymph # (Auto) 1.5, [place] # (Auto) 0.5, Eos # (Auto) 0.0, Baso # (Auto) 0.0, Sodium 133 L, Potassium 3.9, Chloride 103, Carbon Dioxide 30, Anion Gap 3.9 L, BUN 13, Creatinine 0.60, Estimated Creat Clear 185, Estimated GFR 108, Est GFR ( Amer) 131, Glucose 96, Calcium 7.8 L, Magnesium 2.0, Total Bilirubin 0.8, AST 31, ALT 27, Alkaline Phosphatase 59, Total Protein 5.7 L, Albumin 3.0 L, Globulin 2.7, Albumin/Globulin Ratio 1.1 I & O for Last 24 hours: Intake & Output 03/30/23 03/31/23 04/01/23 04/02/23 23:59 23:59 23:59 23:59 Intake Total 2900 / 3000 100 / 100 Output Total 0 / 0 100 / 100 Balance 2900 / 3000 0 / 0 Weight 90.718 kg 99.201 kg Constitutional Constitutional: no acute distress and obese *Routine HEENT Exam Head: Present normocephalic Eye: Present EOMI and PERRL ENT: Present mucous membranes moist *Routine Neck Exam Neck: Present supple; Absent lymphadenopathy *Routine Respiratory Exam Respiratory: Present CTA bilaterally *Routine Cardiovascular Exam Cardiovascular: Present RRR *Routine Abdominal Exam Abdominal: Present soft and normoactive bowel sounds; Absent tenderness *Routine Extremities Exam Extremities: Absent cyanosis, clubbing or edema Comments: Left knee in postop bandage. Neurovascularly intact distal to knee *Routine Skin Exam Skin: Present warm; Absent rash *Routine Neurological Exam Neurological: Present alert, oriented X3 and moving all extremities; Absent altered mental status Results Data Completed and Pending Labs on day of discharge: Labs from last 24 hours 04/02/23 05:36 WBC 8.7 RBC 3.24 L Hgb 11.0 L Hct 33.2 L MCV 102.4 H MCH 34.0 H MCHC 33.2 RDW 13.6 Plt Count 274 MPV 7.5 Neut % (Auto) 76.5 Lymph % (Auto) 16.5 [place] % (Auto) 6.2 Eos % (Auto) 0.3 Baso % (Auto) 0.4 Neut # (Auto) 6.7 Lymph # (Auto) 1.5 [place] # (Auto) 0.5 Eos # (Auto) 0.0 Baso # (Auto) 0.0 Sodium 133 L Potassium 3.9 Chloride 103 Carbon Dioxide 30 Anion Gap 3.9 L BUN 13 Creatinine 0.60 Estimated Creat Clear 185 Estimated GFR 108 Est GFR ( Amer) 131 Glucose 96 Calcium 7.8 L Magnesium 2.0 Total Bilirubin 0.8 AST 31 ALT 27 Alkaline Phosphatase 59 Total Protein 5.7 L Albumin 3.0 L Globulin 2.7 Albumin/Globulin Ratio 1.1 DS: Diagnosis Discharge Diagnosis (1) Primary osteoarthritis of knees, bilateral: Status: Acute Code(s): M17.0 - Bilateral primary osteoarthritis of knee (2) Hx of total knee arthroplasty: Status: Acute Code(s): Z96.659 - Presence of unspecified artificial knee joint (3) Obesity (BMI 35.0-39.9 without comorbidity): Status: Acute Code(s): E66.9 - Obesity, unspecified Meds Home Medications and Allergies Home Medications Medication Instructions Recorded Confirmed Type escitalopram oxalate 10 mg tablet 10 mg PO DAILY 08/30/21 04/01/23 History (Lexapro) aspirin 325 mg tablet 325 mg PO AM DVT prophylaxis 04/01/23 04/01/23 History oxycodone 5 mg tablet 5 mg PO Q4H PRN pain #30 tabs 04/01/23 04/01/23 Rx New Prescriptions to Start Prescriptions: oxycodone 5 mg tablet Allergies Allergy/AdvReac Type Severity Reaction Status Date / Time No Known Allergies Allergy Verified 04/01/23 06:21 Discharge Plan Disposition Patient Disposition: Home, Self-Care Condition: Fair Follow up Plan Follow up with: Russ Friedman MD [Physician] - 04/11/23 9:30 am Prescriptions/Medication Reconciliation: New oxycodone 5 mg tablet 5 mg PO Q4H PRN (Reason: pain) Qty: 30 0RF Continued escitalopram oxalate [Lexapro] 10 mg tablet 10 mg PO DAILY aspirin 325 mg Tablet 325 mg PO AM Rx Instructions: Take with breakfast Other Ambulatory Orders: Home Medical Equipment (Routine) Location: None Selected Ordered By: Carlos Moura Rehab Eval, OP (Routine) Timeframe: 1 Week Facility: [facility] - Location: Physical Therapy Ordered By: Carlos Moura Problem Reconciliation Problems Reviewed?: Yes Patient Discharge Instructions ACTIVITY: Ambulate as tolerated DIET: continue same diet Patient Instructions: Knee Replacement, DI for Surgical Site Infection Providers Primary Care Provider: Kerry Guzman Admit Provider: Carlos Moura Attending Provider: Carlos Moura
[2023-04-02 08:00] VITALS: BP 106/57; PULSE 71; RESP 16; TEMP 36.9; O2SAT 96; O2SAT 97
[2023-04-02 09:29] VITALS: BP 106/64; PULSE 51; RESP 21; O2SAT 96
[2023-04-02] MEDS: CITALOPRAM 20MG TABLET 20 MG PO (09:31)
[2023-04-02] MEDS: ASPIRIN 325MG TABLET 325 MG PO (09:31)
[2023-04-02] MEDS: MORPHINE 2MG/ML SYRINGE 2 MG IV (09:32)
--- NOTE | 2023-04-02 09:41 | EXP.ANES.II ---
[facility] Anesthesia Record Part II Anesthesia Record Part II Discharge Time: 10:14 Destination: Medical Surgical Department PACU nurse assessment reviewed?: Yes Patient Condition:: Good Anesthesia Complications:: None Swallowing reflex intact?: Yes Airway Patency: Patent Cyanosis?: No Blood Pressure: 111/65 SaO2: 99 Respiratory Rate: 17 Pulse Rate: 77 Temperature: 96.3 F Mental Status: Alert & Oriented Pain level:: 0 Nausea and/or vomitting:: None Intake, IV Amount: 0 Hydration: Adequate
[2023-04-02 09:42] VITALS: BP 111/65; PULSE 77; RESP 17; TEMP 35.7; O2SAT 99
--- NOTE | 2023-04-02 10:26 | PC.NURSE ---
AT APPX 0930, PT CALLED NURSE TO ROOM, STATES SHE FEELS LIKE SHE IS GOING TO PASS OUT. THIS RN TO BEDSIDE. PT IS SITTING UP IN BED, JUST GOT BACK FROM USING BATHROOM. PT DID PASS OUT SITTING UP IN BED FOR A FEW SECONDS. CLAMMY AND HOT. PT CAME BACK QUICKLY. VSS CHECKED AND STABLE. PT STATES THIS HAS HAPPENED BEFORE WHEN SHE HAS BEEN IN SIGNIFICANT PAIN. PAIN MEDICATION PROVIDED. PT STATES SHE IS FEELING MUCH BETTER AT THIS TIME. MD LEVI NOTIFIED, NNO.
== END 2023-04-02 12:19 | disposition home or self-care (01) ==
LOC: 2ND 06:35
PROVIDERS: Orthopaedic Surgery; Admitting Provider Internal Medicine Adolescent Medicine; PCP Nurse Practitioner Family; Visit Provider Internal Medicine Adolescent Medicine
PROC: (CPT 27447; principal; 2023-04-01 07:30)
DX: M17.12 Unilateral primary osteoarthritis, left knee (principal); E66.9 Obesity, unspecified; Z68.38 Body mass index [BMI] 38.0-38.9, adult; Z86.16 Personal history of COVID-19; Z87.891 Personal history of nicotine dependence
CPT/HCPCS: 27447; 36415; 73560; 80053; 81025; 83735; 85025; 96374; 97161; 97165; 97530; C1713; C1776; G0378; J2704

== ENCOUNTER 2023-04-11 10:21 | Outpatient (CLI) | payer MEDICAID, SELFPAY ==
--- NOTE | 2023-04-11 10:21 | XR_ITS ---
FINAL REPORT CLINICAL HISTORY: left knee replacement COMPARISON: 08/24/2021 FINDINGS: Two views of the left knee were obtained. There are postoperative changes from left knee arthroplasty. Hardware is intact. There is no evidence of fracture or dislocation. No localized soft tissue abnormality is seen. There is no evidence of foreign body. IMPRESSION: Postoperative changes without acute abnormality identified. Reviewed, Interpreted and Dictated by Allan Maza III, MD Transcribed by Lucy Heath Authenticated and [facility]
== END 2023-04-11 23:59 ==
LOC: RAD 10:21
PROVIDERS: PCP Nurse Practitioner Family; Visit Provider Orthopaedic Surgery
DX: Z96.652 Presence of left artificial knee joint (principal)
CPT/HCPCS: 73560

== ENCOUNTER 2023-05-09 12:48 | Outpatient (CLI) | payer MEDICAID, SELFPAY ==
--- NOTE | 2023-05-09 12:52 | XR_ITS ---
FINAL REPORT CLINICAL HISTORY: lt knee pain-- post op tk COMPARISON: 04/11/2023 FINDINGS: Three views of the left knee reveal total right knee arthroplasty. The hardware is intact. There is no evidence of fracture or dislocation. The bony alignment is normal. There is no evidence of joint effusion. No localized soft tissue abnormality is seen. IMPRESSION: Postoperative changes without acute abnormality identified. Reviewed, Interpreted and Dictated by Allan Maza III, MD Transcribed by Lucy Heath Authenticated and . [facility]
== END 2023-05-09 23:59 ==
LOC: RAD 12:49
PROVIDERS: PCP Nurse Practitioner Family; Visit Provider Orthopaedic Surgery
DX: M25.562 Pain in left knee (principal); Z96.652 Presence of left artificial knee joint
CPT/HCPCS: 73562

== ENCOUNTER 2023-05-13 11:25 | Day surgery (SDC) | payer MEDICAID, SELFPAY ==
[2023-05-13 11:33] VITALS: BMI 35.4
[2023-05-13] MEDS: LACTATED RINGERS 1000ML 1,000 ML 25 ML IV (11:39)
[2023-05-13 11:46] VITALS: BP 131/76; PULSE 80; RESP 18; TEMP 36.6; O2SAT 98
[2023-05-13 11:52] LABS: Urine Pregnancy, HCG Qual. Negative (Negative)
--- NOTE | 2023-05-13 12:17 | EXP.ANES.CKL ---
[facility] Disclaimer: The information contained in this section may have been updated after the patient was seen, as this information can be updated by other users. Medical History Endometriosis Endometriosis determined by laparoscopy History of COVID-19 Pre-op testing Primary osteoarthritis of knees, bilateral Skin cancer Surgical History (Updated 05/13/23 @ 11:42 by Arlene Rivera RN) H/O gastric sleeve H/O tubal ligation History of section History of cholecystectomy History of knee replacement History of tonsillectomy Family History Other Alcoholism Asthma Cancer Coronary artery disease Diabetes FHx: mental illness Hypertension Thyroid disorder Social History (Updated 05/13/23 @ 11:43 by Arlene Rivera RN) Smoking Status: Former smoker alcohol intake: current substance use type: denies use current occupational status: employed Travel in the last 8 weeks: None [facility] Anesthesia Checklist Patient Identification Patient Identification: Arm Band and Family Structural Data Admitted From: Home Planned Operative Procedure/s: Left Knee manipulation Consent for Planned Operative Procedure(s) Verified: Yes Verified Documents: Surgical Consent and History and Physical Additional verifications Anesthesia Reactions: No Hx Blood Transfusions: No Blood Transfusion Reaction: No Cephalosporin Allergy: No Airway Assessment Mallampati Score:: Class II C-Spine Mobility Assessed: Yes TMJ Mobility Assessed: Yes Dentition: Good Dentition Neurological Assessment Level of Consciousness: Awake, Alert, Appropriate and Follows Commands Hx Seizures: No Numbness or tingling in extremities: No Anesthesia Plan Anesthesia Risk discussed: Yes ASA Class: II Anesthesia Type: MAC w/Block Preoperative Comments Pre-Operative Comments: PONV. Healthy. NKDA.
--- NOTE | 2023-05-13 13:46 | EXP.OP.NOTE ---
Date of procedure: 05/13/23 Pre-op Diagnosis:: Left knee stiffness status post left knee replacement 04/01/2022 Post-op Diagnosis:: Left knee stiffness status post left knee replacement 04/01/2022 Procedure performed:: Left knee manipulation under anesthesia Surgeon:: Russ Friedman MD [employer]:: Other Anesthesia: MAC Estimated blood loss (mL): 0 Clinical Note:: Yuki is a pleasant 48-year-old female who underwent left knee replacement on 04/01. Initial postoperative course uncomplicated however she has been unable to obtain flexion much past 80 degrees in physical therapy. She has been doing PT at [facility] 3 times a week since surgery. Other than persistent stiffness with flexion doing well. Left knee x-rays reveal well-placed total knee arthroplasty with no loosening, malalignment or wear. We discussed proceeding with left knee manipulation under anesthesia to help improve her flexion. All of the risks, benefits and alternatives to this procedure were discussed with her in detail and she agreed to proceed. Surgical consent form was signed. Operative findings:: Left knee exam under anesthesia prior to the manipulation revealed full extension and flexion to 80 degrees. After performing the manipulation we achieved flexion to 130 degrees. Operative note:: The patient was seen in the preoperative holding area. The left knee was marked to confirm the correct operative site. She was seen by anesthesia. No antibiotics given for this close procedure. Brought back to the OR. Timeout performed to confirm left knee manipulation under anesthesia. The patient was properly sedated with MAC without difficulty. Exam under anesthesia of her left knee revealed full extension and flexion to 80 degrees. We then performed the manipulation. Applying steady gentle pressure to the proximal tibia while holding the thigh I felt scar tissue break-up and gradually was able to flex the knee to 130 degrees of flexion. Anesthesia reversed without difficulty. Transferred to recovery in stable condition. Postoperative plan: -Plan for adductor canal block in PACU for perioperative pain control. -We prescribed oxycodone to take as needed for pain. -She is scheduled to resume physical therapy at [facility] tomorrow to progress range of motion and strength as tolerated. -Follow-up with us in the office on 05/27 for repeat clinical check. Tourniquet time (min): 0 Condition: stable Disposition: PACU Specimens:: None Complications:: None
[2023-05-13 13:55] VITALS: BP 141/81; PULSE 85; RESP 17; TEMP 36.7; O2SAT 98
[2023-05-13 14:05] VITALS: BP 149/89; PULSE 100; RESP 18; O2SAT 100
[2023-05-13] MEDS: KETOROLAC 30MG/ML VIAL 30 MG IV (14:12)
[2023-05-13] MEDS: HYDROMORPHONE 2MG/ML SYRINGE 0.5 MG IV (14:13)
[2023-05-13 14:15] VITALS: BP 135/78; PULSE 90; RESP 17; O2SAT 99
[2023-05-13 14:25] VITALS: BP 125/71; PULSE 86; RESP 17; O2SAT 100
--- NOTE | 2023-05-13 14:25 | SUR.PHASEII ---
pt reports chest pain in the center of her chest. Dr Friedman notified. Dr Friedman said to obtain an EKG. 14:29 EKG obtained. NSR shown and verified by Jeffrey. Dr Friedman notified of results.
--- NOTE | 2023-05-13 14:29 | ECG_ITS ---
APPROVED REPORT Exam: Resting ECG HR:70 bpm ECG Measurements Heart Rate 70 AXES NJ 133 P 19 QRSd 97 QRS 43 QT 410 T 29 QTc 431 Conclusion SINUS RHYTHM NORMAL ECG UNCONFIRMED REPORT Electronically signed by : Sha Desai MD 05/13/2023 20:05:23
[2023-05-13 14:35] VITALS: BP 128/77; PULSE 73; RESP 18; O2SAT 99
== END 2023-05-13 14:43 | disposition home or self-care (01) ==
PROVIDERS: PCP Nurse Practitioner Family; Visit Provider Orthopaedic Surgery
PROC: (CPT 27599; principal; 2023-05-13 13:00)
DX: M25.662 Stiffness of left knee, not elsewhere classified (principal); Z96.652 Presence of left artificial knee joint; T84.89XA Other specified complication of internal orthopedic prosthetic devices, implants and grafts, initial encounter
CPT/HCPCS: 27599; 81025; 93005

== ENCOUNTER 2023-06-11 10:48 | Outpatient (CLI) | payer MEDICAID, SELFPAY ==
--- NOTE | 2023-06-11 10:49 | MM_ITS ---
PROCEDURE INFORMATION: Exam: MG Bilateral Screening 3D Mammography Exam date and time: 06/11/2023 10:34 AM Age: 48 years old Clinical indication: Screening mammogram TECHNIQUE: Imaging protocol: Bilateral Screening tomosynthesis and 2D mammography including computer-aided detection (CAD) when performed. COMPARISON: 1. MG MM DIG SCREENING MAMM BI W/CAD 05/07/2022 4:23 PM 2. MG MM MAMMO DIGITAL IRENE SCREEN BILAT 01/29/2021 3:40 PM 3. MG MM MAMMO DIGITAL IRENE SCREEN BILAT 01/14/2020 11:11 AM 4. MG MM MAMMO DIGITAL IRENE SCREEN BILAT 01/06/2019 9:00 AM FINDINGS: MAMMOGRAPHY: Breast composition: The breast is heterogeneously dense, which may obscure small masses. Mass: None. Architectural distortion: No new or suspicious architectural distortion. Calcifications: No new or suspicious calcifications are present Asymmetric density: No new or suspicious asymmetric density is present Skin thickening: None. Axillary adenopathy: None. IMPRESSION: No mammographic evidence of malignancy. Recommend annual screening mammography unless otherwise clinically indicated. ASSESSMENT: BI-RADS category 1: Negative.
== END 2023-06-11 23:59 ==
LOC: RAD 10:49
PROVIDERS: PCP Nurse Practitioner Family; Visit Provider Obstetrics & Gynecology
DX: Z12.31 Encounter for screening mammogram for malignant neoplasm of breast (principal)
CPT/HCPCS: 77063; 77067

== ENCOUNTER 2023-07-11 10:51 | Outpatient (CLI) | payer MEDICAID, SELFPAY ==
--- NOTE | 2023-07-11 10:55 | XR_ITS ---
FINAL REPORT CLINICAL HISTORY: Lt Knee Pain FINDINGS: LEFT KNEE Three views demonstrate a total joint prosthesis. The hardware appears intact. There is no acute bony abnormality. IMPRESSION: Postoperative change with no acute bony abnormality. Reviewed, Interpreted and Dictated by Escobar Seymour MD Transcribed by Twila Mcfarland Authenticated and [facility]
== END 2023-07-11 23:59 ==
LOC: RAD 10:52
PROVIDERS: PCP Nurse Practitioner Family; Visit Provider Orthopaedic Surgery
DX: M25.562 Pain in left knee (principal)
CPT/HCPCS: 73562

== ENCOUNTER 2023-08-12 08:00 | Outpatient (RCR) | payer MEDICAID, SELFPAY ==
--- NOTE | 2023-04-07 15:32 | HMH.PTOPEV ---
PT Outpatient Evaluation Rehab PT Outpatient Evaluation Start: 04/07/23 13:06 Freq: Status: Active Protocol: Document 04/07/23 13:06 REGINA (Rec: 04/07/23 15:32 REGINA [id number]) E-signed By Bria Dumont, PT Outpatient Therapy Subjective History Subjective History Pt is a 47 y/o female who reports to PT s/p L TKA performed on 04/01/22. Pt denies complications following surgery, but states she did pass out due to pain while at the hospital. Pt states this has happened to her before due to severe back pain. Pt reports continued severe pain with movement of the knee causing her to feel dizzy and light-headed at times. Pt denies fever, redness or warmth of the LLE. Pt denies paresthesia. Pt was provided with HEP while admitted to the hospital consisting of quad sets, assisted LAQ, heel slides and ankle pumps. Pt states she has only been performing the quad sets and ankle pumps, states it hurts too much to bend her knee and she cannot tolerate it. Pt reports she is taking prescribed pain medication as needed and OTC Ibuprofen/ Tylenol. Pt reports she has been using her polar pack as needed. Pt reports she has been ambulating with a RW, denies falls. Pt reports she has a follow-up appointment with Dr. Friedman 1 month post-op. Pt denies further comorbidities to report. New diagnosis of cancer in past 12 No months? Chief Complaint Pain,Swelling,Gives out/ Unstable,Weakness Symptom Type Ache,Sharp,Dull Symptoms Relieved By Rest/Positioning,Ice,OTC Meds Symptoms Aggravated By Sitting,Standing,Bending/ Stooping,Physical Activity, Twisting,Walking,Lifting Current Functional Limitations Lifting,Housework,Dressing, Driving,Sitting,Squatting, Walking,Stairs,Balance Symptom Description Constant and Continuous, Constant but Variable Level of pain today (0-10) 5 Pain scale - at its best (0-10) 2 Pain scale - at its worst (0-10) 10 Hip/Knee Eval Gait Observation General Gait Pattern Observation Antalgic Gait,Decrease Weight Bear (L),Decrease Stride Lngth (L) Assistive Device Assistive Devices Rolling / Wheeled Walker Palpation Tenderness left Knee Palpation Finding Tenderness Knee Palpation Overall Comment global left knee tenderness, post-op contusions noted MMT Hip Flexion Strength Grade 3 Fair Hip Abduction Strength Grade 3 Fair Hip Adduction Strength Grade 3 Fair Hip Extension Strength Grade 3 Fair Knee Strength Reason Not Measured Pain Knee Extension Strength Grade Not Tested Knee Flexion Strength Grade Not Tested ROM Knee Extension Active Range of Motion ( 8 degrees) Knee Extension Passive Range of Motion ( 5 degrees) Knee Flexion Active Range of Motion ( 37 degrees) Knee Flexion Passive Range of Motion ( 45 degrees) Sensation Comment equal and intact to light touch sensation Effusion joint effusion knee exam standard left Mid - Patellar Circumerential Measure ( 46 cm) 5cm Proximal Circumference Measure (cm) 56 5cm Distal Circumference Measure (cm) 45 Lower Extremity Functional Index Activities Today, do you or would you have any difficulty at all with: a.Any of your usual work, housework or Extreme difficulty or unable school activities to perform activity b. Your usual hobbies, recreational or Extreme difficulty or unable sporting activities to perform activity c. Getting into or out of the bath Extreme difficulty or unable to perform activity d. Walking between rooms Moderate difficulty e. Putting on your shoes or socks Quite a bit of difficulty f. Squatting Extreme difficulty or unable to perform activity g. Lifting an object, like a bag of No difficulty groceries from the floor h. Performing light activities around Moderate difficulty your home i. Performing heavy activities around Extreme difficulty or unable your home to perform activity j. Getting into or out of a car Extreme difficulty or unable to perform activity k. Walking 2 blocks Extreme difficulty or unable to perform activity l. Walking a mile Extreme difficulty or unable to perform activity m. Going up or down 10 stairs (about 1 Extreme difficulty or unable flight of stairs) to perform activity n. Standing for 1 hour Extreme difficulty or unable to perform activity o. Sitting for 1 hour No difficulty p. Running on even ground Extreme difficulty or unable to perform activity q. Running on uneven ground Extreme difficulty or unable to perform activity r. Making sharp turns while running fast Extreme difficulty or unable to perform activity s. Hopping Extreme difficulty or unable to perform activity t. Rolling over in bed Extreme difficulty or unable to perform activity LEFI Score Lower Extremity Functional Index Score 13 Outpatient Therapy Assessment Impairments Problems/Impairmments Palpation Tenderness,Impaired Range of Motion,Impaired Strength,Impaired Transfers, Impaired Gait Pattern,Impaired Walking,Impaired Standing, Impaired Sitting,Impaired Driving,Impaired Lifting, Impaired Dressing,Impaired Shower/Bathing,Impaired Household Care,Impaired Stair Climbing,Impaired Incline Stepping,Impaired Stepping on Uneven Surface,Impaired Squatting,Impaired Bending, Impaired Work Activities, Impaired Balance,Increased Edema,Lymphedema Present,Wound Care Needs,Subjective C/O Pain,Impaired Self Care/Self Management Prognosis Rehab Potential Fair Comment Poor pain tolerance limiting progress of knee mobility and compliance with HEP/PT treatment Clinical Impression Consistent with Diagnosis Yes Short Term Goals Number of Weeks 4 Increase Range of Motion Yes: Improve L knee AROM to at least 0-5-90 Increase Strength Yes: Improve LLE MMT to 4-/5 grossly to assist with function Improve Gait Pattern with Assistive Yes: proper gait mechanics Device with LRD Improve LEFI Score Yes: Improve score to at least 30 to improve overall QOL Decrease Subjective C/O Pain Yes: Improve pain at worst to 8/10 to improve overall QOL Improve Self Care/Self Management Yes Patient to be Ind w/ HEP Yes Alf Goals Number of Weeks 6-8 Increase Range of Motion Yes: Improve L knee AROM to 0- 115 to improve function and gait Increase Strength Yes: Improve LLE MMT to at least 4+-5/5 grossly to assist with function Improve Gait Pattern with Assistive Yes: proper mechanics without Device AD to decrease fall risk Improve Ability to Climb Stairs Yes: 1 flight with HR to assist with home navigation Improve LEFI Score Yes: Improve score to at least 50/80 to improve overall QOL Decrease Edema Yes Decrease Subjective C/O Pain Yes: Improve pain at worst to 6/10 to improve overall QOL Patient to be Ind w/ Advanced HEP Yes Outpatient Therapy Plan of Care Treatment Plan May Include Therapeutic Exercise Including Home Yes Exercise Program Manual Therapy Techniques Yes Neuromuscular Re-education Yes Therapeutic Activities to Return to Yes Previous Functional/Work Level Gait Training Yes ADL/Self Care Education Yes Dry Needling Yes Thermal Modalities Yes Electrical Stimulation Yes Ultrasound/Phonophoresis Yes Iontophoresis Yes Orthotics/Bracing/Splinting Yes Vasopneumatic Compression Pump Yes Massage Yes Manual Lymphatic Drainage Yes Wound Care Yes Eval/Re-Eval Yes Frequency Times per week 2-3 Duration Number of Weeks 6-8 Addendums This patient is a candidate for social No or vocational rehab? Patient/Guardian verbally acknowledges Yes understanding of treatment program and consents to further treatment? Patient/Guardian verbally acknowledges Yes understanding of diagnosis, prognosis and goals for treatment? Eval Complexity PT Charges 16729 - Low Complexity Shoulder/Elbow Eval Shoulder Objective Measurements Elbow Objective Measurements PHYSICIAN CERTIFICATION: I certify the specified therapy services for Yuki Kerns are required, authorized, and reviewed every 30 days.
--- NOTE | 2023-05-07 13:15 | HMH.RHREAS ---
Rehab Reassessment Rehab OP Re-assessment Start: 04/07/23 13:06 Freq: Status: Active Protocol: Document 05/07/23 11:24 WALELEONARDA (Rec: 05/07/23 13:15 WALEAGUSTINAKumar [id number]) E-signed By Bria Dumont PT Lower Extremity Functional Index Activities Today, do you or would you have any difficulty at all with: a.Any of your usual work, housework or Moderate difficulty school activities b. Your usual hobbies, recreational or Extreme difficulty or unable sporting activities to perform activity c. Getting into or out of the bath A little bit of difficulty d. Walking between rooms A little bit of difficulty e. Putting on your shoes or socks A little bit of difficulty f. Squatting Extreme difficulty or unable to perform activity g. Lifting an object, like a bag of No difficulty groceries from the floor h. Performing light activities around A little bit of difficulty your home i. Performing heavy activities around Moderate difficulty your home j. Getting into or out of a car A little bit of difficulty k. Walking 2 blocks A little bit of difficulty l. Walking a mile Moderate difficulty m. Going up or down 10 stairs (about 1 Moderate difficulty flight of stairs) n. Standing for 1 hour Quite a bit of difficulty o. Sitting for 1 hour A little bit of difficulty p. Running on even ground Extreme difficulty or unable to perform activity q. Running on uneven ground Extreme difficulty or unable to perform activity r. Making sharp turns while running fast Quite a bit of difficulty s. Hopping Moderate difficulty t. Rolling over in bed A little bit of difficulty LEFI Score Lower Extremity Functional Index Score 40 Rehab Re-assessment Subjective Subjective Pt states she is doing well overall. Pt reports her knee often feels unstable when she tries to increase her walking speed or bends her knee too much with walking, denies falls. Pt reports she is using a quad cane for all ambulation except short household distances. Pt reports pain at worst as 8/10 with movement of the leg especially bending the knee. Pt does report instances of 0/ 10 pain when she rests. Pt reports compliance with HEP and using ice as needed for pain/swelling control. Pt reports she returns to her surgeon Friday05/09/23. Objective Objective Notes L knee AROM: 0-7-60 L knee AAROM: 0-7-65 L knee PROM: 0-80 in seated, 0 -72 in supine LLE MMT: hip flex 4/5, hip abd /add/ext 4-/5, knee ext 4-/5, knee flex 4-/5, ankle DF 5/5 *continues to demonstrate extension lag with straight leg raise Edema: prox incision 57, patellar joint line 45, distal incision 45.5 Gait: antalgic with decreased WB on LLE with quad cane - lack of knee flexion and terminal knee extension throughout gait cycle Assessment Progress Assessment Slower Than Expected Assessment Notes Pt is 5 weeks s/p L TKA performed 04/01/23. Pt has attended 10 PT visits consisting of aerobic exercise , L knee P/AA/AROM, LE stretching/strengthening, MLD for edema, gait training, manual therapy to tolerance, modalities including [place] e -stimulation and HEP. Pt demonstrates improved L knee ROM, strength, gait and LEFS this date compared to the initial evaluation. The pt continues to demonstrate extension lag with straight leg raises, lack of full knee extension AROM and <90 degrees of passive or active knee flexion. Pt demonstrates poor- fair tolerance to therapeutic exercises and self or PT assisted knee ROM due to pain. Pt re-educated on importance of regaining knee ROM and strength for gait mechanics and function. Overall, the pt would continue to benefit from skilled PT to further improve subjective report of pain, edema, knee ROM, LE strength, gait, balance and functional activity tolerance to improve overall QOL. Patient goals met ST/7 Goals Not Met knee ROM, gait, LTG Revised Goals n/a Plan Plan Continue initial POC Frequency of Therapy 2-3x/week Duration of therapy 4-6 more weeks Time and Billing Re-Eval Time 18 Re-Eval Billing Units 1 PHYSICIAN CERTIFICATION: I certify the specified therapy services for Yuki Kerns are required, authorized, and reviewed every 30 days.
--- NOTE | 2023-06-04 14:00 | HMH.RHREAS ---
Rehab Reassessment Rehab OP Re-assessment Start: 04/07/23 13:06 Freq: Status: Active Protocol: Document 06/04/23 11:40 REGINA (Rec: 06/04/23 14:00 REGINA [id number]) E-signed By Bria Dumont PT Lower Extremity Functional Index Activities Today, do you or would you have any difficulty at all with: a.Any of your usual work, housework or No difficulty school activities b. Your usual hobbies, recreational or Moderate difficulty sporting activities c. Getting into or out of the bath A little bit of difficulty d. Walking between rooms A little bit of difficulty e. Putting on your shoes or socks A little bit of difficulty f. Squatting Quite a bit of difficulty g. Lifting an object, like a bag of No difficulty groceries from the floor h. Performing light activities around No difficulty your home i. Performing heavy activities around A little bit of difficulty your home j. Getting into or out of a car A little bit of difficulty k. Walking 2 blocks A little bit of difficulty l. Walking a mile Moderate difficulty m. Going up or down 10 stairs (about 1 Quite a bit of difficulty flight of stairs) n. Standing for 1 hour Quite a bit of difficulty o. Sitting for 1 hour No difficulty p. Running on even ground Extreme difficulty or unable to perform activity q. Running on uneven ground Extreme difficulty or unable to perform activity r. Making sharp turns while running fast Extreme difficulty or unable to perform activity s. Hopping Extreme difficulty or unable to perform activity t. Rolling over in bed Moderate difficulty LEFI Score Lower Extremity Functional Index Score 43 Rehab Re-assessment Subjective Subjective Pt reports she is doing better overall. Pt reports 10/10 pain during exercises and stretching during PT treatment session; however, reports daily pain as 4/10. Pt reports she is ambulating without a cane most of the time without issues, denies falls. Pt states she will use her cane with prolonged ambulation for stability sometimes. Pt reports she saw Dr. Friedman on 05/27 for a follow-up. Pt states he mentioned a knee splint, states she is waiting to hear back from insurance regarding this. Pt states she was prescribed more pain medication to take prior to PT treatment which she has been doing. Pt reports compliance with HEP. Pt reports she returns to Dr. Friedman in ~1 month . Objective Objective Notes L knee AROM: 0-7-80 L knee PROM: 0-90 LLE MMT: hip flex 4/5, hip abd /add/ext 4/5, knee ext 4-/5, knee flex 4/5, ankle DF 5/5 *continues to demonstrate extension lag with straight leg raise despite [place] estim treatment Edema: prox incision 58, patellar joint line 46, distal incision 47 Gait: antalgic with lack of knee flexion and terminal knee extension throughout gait cycle Assessment Progress Assessment Slower Than Expected Assessment Notes Pt is 9 weeks s/p L TKA performed 04/01/23. Pt has attended 17 PT sessions total. Pt has attended only 4 PT sessions since ROSA performed on 05/13/23. Treatment sessions have consisted of aerobic exercise, L knee P/AA/AROM, LE stretching/strengthening, edema management, gait training, manual therapy, modalities including [place] estim and HEP. Pt demonstrates improved L knee ROM, strength , gait and LEFS this date compared to the pervious reassessment. The pt demonstrated slight increase in knee edema compared to the previous reassessment. The pt continues to demonstrate extension lag with straight leg raise and significant range of motion deficits. Pt continues to demonstrate poor- fair tolerance to therapeutic exercises and self or PT assisted knee ROM due to pain. Pt loudly verbalizes for PT/ OIL LEASE BROKER to stop manual stretching at ~90 degrees and refuses further manual stretching due to report of pain. PT reiterated importance of compliance to PT treatment , HEP, manual stretching and exercises to assist with regaining knee ROM and strength for gait mechanics and function. Overall, the pt would continue to benefit from skilled PT to further improve subjective report of pain, edema, knee ROM, LE strength, gait, balance and functional activity tolerance to improve overall QOL. Patient goals met ST/7 Goals Not Met p! severity at worst, knee ROM , gait mechanics, LTG Revised Goals n/a Plan Plan Continue initial POC Frequency of Therapy 2-3x/week Duration of therapy 4 more weeks Time and Billing Re-Eval Time 15 Re-Eval Billing Units 1 PHYSICIAN CERTIFICATION: I certify the specified therapy services for Yuki Kerns are required, authorized, and reviewed every 30 days.
--- NOTE | 2023-07-03 10:33 | HMH.RHREAS ---
Rehab Reassessment Rehab OP Re-assessment Start: 04/07/23 13:06 Freq: Status: Active Protocol: Document 07/03/23 08:10 REGINA (Rec: 07/03/23 10:33 REGINA [id number]) E-signed By Bria Dumont PT Lower Extremity Functional Index Activities Today, do you or would you have any difficulty at all with: a.Any of your usual work, housework or A little bit of difficulty school activities b. Your usual hobbies, recreational or A little bit of difficulty sporting activities c. Getting into or out of the bath A little bit of difficulty d. Walking between rooms No difficulty e. Putting on your shoes or socks A little bit of difficulty f. Squatting A little bit of difficulty g. Lifting an object, like a bag of No difficulty groceries from the floor h. Performing light activities around No difficulty your home i. Performing heavy activities around A little bit of difficulty your home j. Getting into or out of a car A little bit of difficulty k. Walking 2 blocks A little bit of difficulty l. Walking a mile A little bit of difficulty m. Going up or down 10 stairs (about 1 A little bit of difficulty flight of stairs) n. Standing for 1 hour A little bit of difficulty o. Sitting for 1 hour No difficulty p. Running on even ground Quite a bit of difficulty q. Running on uneven ground Quite a bit of difficulty r. Making sharp turns while running fast Extreme difficulty or unable to perform activity s. Hopping Quite a bit of difficulty t. Rolling over in bed A little bit of difficulty LEFI Score Lower Extremity Functional Index Score 55 Rehab Re-assessment Subjective Subjective Pt reports she received her dynasplint and has been wearing it for 3 hours per day . Pt reports her knee is sore after wear of the splint but overall is tolerating it well. Pt reports she has not been compliant with her HEP due to being busy. Pt reports pain seems to be improving with minimal-no pain at rest. Pt continues to report severe pain with stretching the knee into flexion that often makes her feel dizzy and light- headed. Pt states she returns to her surgeon on 07/11/23 for a follow-up visit. Objective Objective Notes L knee AROM: 0-5-95 L knee PROM: 0-105 LLE MMT: hip flex 4/5, hip abd /add/ext 4+/5, knee ext 4/5, knee flex 4/5, ankle DF 5/5 *continues to demonstrate extension lag with straight leg raise Edema: prox incision 56.5, patellar joint line 46, distal incision 45 Gait: mildly antalgic with lack of knee flexion and terminal knee extension throughout gait cycle Assessment Progress Assessment Slower Than Expected Assessment Notes Pt is 13 weeks s/p L TKA performed on 04/01/23. Pt also underwent ROSA performed on . Pt demonstrated improved R knee A/PROM and strength this date compared to the previous reasessment; however, continues to demonstrate AROM flexion <100 degrees with low tolerance to manual therapy due to pain. Pt reports compliance with wear of dynasplint 3 hours per day. Pt denies compliance with HEP , therefore, was provided with an updated HEP sheet and encouraged to perform it 1-2x/ day to further improve ROM and strength. Overall, the pt would continue to benefit from skilled PT to furthter improve L knee AROM, RLE strength/stability, and gait mechanics to decrease fall risk and assist with function. Patient goals met ST/7 LT/8 Goals Not Met knee AROM, LE strength, gait mechanics, p! at worst, HEP compliance Revised Goals n/a Plan Plan Continue initial POC Frequency of Therapy 2-3x/week Duration of therapy 4 more weeks Time and Billing Re-Eval Time 15 Re-Eval Billing Units 1 PHYSICIAN CERTIFICATION: I certify the specified therapy services for Yuki Kerns are required, authorized, and reviewed every 30 days.
--- NOTE | 2023-07-31 09:59 | HMH.RHREAS ---
Rehab Reassessment Rehab OP Re-assessment Start: 04/07/23 13:06 Freq: Status: Active Protocol: Document 07/31/23 08:08 WALELEONARDA (Rec: 07/31/23 09:59 REGINA [id number]) E-signed By Bria Dumont PT Lower Extremity Functional Index Activities Today, do you or would you have any difficulty at all with: a.Any of your usual work, housework or A little bit of difficulty school activities b. Your usual hobbies, recreational or Moderate difficulty sporting activities c. Getting into or out of the bath A little bit of difficulty d. Walking between rooms A little bit of difficulty e. Putting on your shoes or socks A little bit of difficulty f. Squatting Moderate difficulty g. Lifting an object, like a bag of No difficulty groceries from the floor h. Performing light activities around No difficulty your home i. Performing heavy activities around A little bit of difficulty your home j. Getting into or out of a car A little bit of difficulty k. Walking 2 blocks A little bit of difficulty l. Walking a mile Moderate difficulty m. Going up or down 10 stairs (about 1 Moderate difficulty flight of stairs) n. Standing for 1 hour Moderate difficulty o. Sitting for 1 hour No difficulty p. Running on even ground Extreme difficulty or unable to perform activity q. Running on uneven ground Extreme difficulty or unable to perform activity r. Making sharp turns while running fast Extreme difficulty or unable to perform activity s. Hopping Quite a bit of difficulty t. Rolling over in bed No difficulty LEFI Score Lower Extremity Functional Index Score 48 Rehab Re-assessment Subjective Subjective Pt has been unable to attend PT for 2 weeks due to waiting for insurance approval. Pt states she was only able to perform her provided HEP on weekends due to being busy at work. Pt reports she has been compliant with 3 hour wear of her Dynasplint on level 9. Pt reports overall her knee feels a lot better. Pt reports she has been more active with report of 5/10 knee pain towards the end of the day. Pt reports her thigh muscle still feels weak and her her leg sometimes levon, denies falls. Pt reports she has to be slow and careful when traversing uneven terrain. Pt reports she returns to her surgeon at the end of August for her next follow-up visit. Objective Objective Notes L knee AROM: 0-8-104 L knee PROM: 3-107 LLE MMT: hip flex 4+/5, hip abd/add/ext 4+/5, knee ext 4/5 , knee flex 4+/5, ankle DF 5/5 *continues to demonstrate extension lag with straight leg raise Edema: prox incision 56cm, patellar joint line 45cm, distal incision 45cm Gait: mildly antalgic with lack of knee flexion and terminal knee extension throughout gait cycle Assessment Progress Assessment Slower Than Expected Assessment Notes Pt demonstrated improved L knee flexion ROM this date with slight regression in extension AROM and LEFS score since last reassessment. Pt continues to demonstrate quadricep weakness with extension lag during straight leg raises and report of intermittent buckling with ambulation. Although ROM improved, pt continues to demonstrate knee flexion AROM <110 degrees altering proper gait mechanics. PT reiterated importance of compliance with HEP to improve ROM and strength. Overall, the pt would continue to benefit from skilled PT to further improve knee AROM, LE strength, and edema to assist with proper gait mechanics and return to PLOF. Patient goals met LT/8 Goals Not Met knee ROM, strength, gait, LEFS score, HEP compliance Revised Goals n/a Plan Plan Continue initial POC Frequency of Therapy 2x/week Duration of therapy 4 more weeks Time and Billing Re-Eval Time 15 Re-Eval Billing Units 1 PHYSICIAN CERTIFICATION: I certify the specified therapy services for Yuki Kerns are required, authorized, and reviewed every 30 days.
== END 2023-08-12 09:30 | disposition home or self-care (01) ==
LOC: PT 08:00
PROVIDERS: PCP Nurse Practitioner Family; Visit Provider Orthopaedic Surgery
DX: M25.562 Pain in left knee (principal); Z96.652 Presence of left artificial knee joint
CPT/HCPCS: 97010; 97014; 97016; 97110; 97112; 97140; 97163; 97164; 97530; 97535; G0283

== ENCOUNTER → 2023-09-04 08:41 | Outpatient (CLI) | payer MEDICAID, SELFPAY | LOC: SL 08:41 | PROVIDERS: PCP Nurse Practitioner Family; Visit Provider Nurse Practitioner Family | DX: G47.33 Obstructive sleep apnea (adult) (pediatric) (principal); R06.83 Snoring; R40.0 Somnolence; E66.9 Obesity, unspecified; Z68.35 Body mass index [BMI] 35.0-35.9, adult | CPT/HCPCS: G0399 ==

== ENCOUNTER 2023-10-28 08:23 | Day surgery (SDC) | payer MEDICAID, SELFPAY ==
[2023-10-28 08:35] VITALS: BMI 35.4
[2023-10-28] MEDS: LACTATED RINGERS 1000ML 1,000 ML 100 ML IV (08:37)
[2023-10-28 08:39] VITALS: BP 112/65; PULSE 76; RESP 18; TEMP 36.4; O2SAT 98
[2023-10-28 08:43] LABS: Urine Pregnancy, HCG Qual. Negative (Negative)
--- NOTE | 2023-10-28 08:45 | HMH.SCOPE ---
Procedure: Date: 10/28/23 Patient Date of :: 1975 Procedure Performed:: Colonoscopy with polypectomy Indications:: Screening Performing Provider:: Tremaine Rascon MD Referring Provider:: . Sedation:: Monitored anesthesia care Procedure:: After informed consent was obtained the patient was taken to the endoscopy suite. Sedation ensued after the patient was transferred to the left lateral decubitus position. Pulse, blood pressure, and oxygen saturation were monitored throughout the procedure. Digital rectal exam revealed no significant abnormality. The colonoscope was placed in position. The entire colon was evaluated. The colonoscope was carefully removed and the patient was transferred to recovery in stable condition. Please see findings and specimens below for detail. Findings:: Bowel preparation moderate Fairly profound lack of relaxation/spasticity Lobulated/complex partially-pedunculated polyps (see specimens) Specimens:: Lobulated/complex partially-pedunculated polyp at 20 cm (hot snare) Lobulated/complex partially-pedunculated polyp at 15 cm (hot snare) Recommendations:: Timing of repeat colonoscopy is pending pathology but likely be around 2 years with extended/alternate bowel preparation secondary to moderate preparation, spasticity/lack of relaxation, and size/nature of polyps. Complications:: No immediate Estimated blood obtained (mL): 1 Colonoscopy Component Colonoscopy Component Was a colonoscopy performed during today's procedure?: Yes Recommended follow up colonoscopy of at least 10 years?: No If no, follow up colonoscopy recommended in ___ years?: (See above) Reason for not recommending >/= 10 yr follow-up interval?: (See above)
[2023-10-28 08:57] VITALS: O2SAT 98
--- NOTE | 2023-10-28 09:11 | EXP.ANES.CKL ---
[facility] Disclaimer: The information contained in this section may have been updated after the patient was seen, as this information can be updated by other users. Medical History Anxiety Neuropathy History of COVID-19 Endometriosis Skin cancer Pre-op testing Primary osteoarthritis of knees, bilateral Endometriosis determined by laparoscopy Surgical History History of knee replacement History of tonsillectomy History of cholecystectomy H/O tubal ligation H/O gastric sleeve Family History Other Alcoholism Asthma Cancer Coronary artery disease Diabetes FHx: mental illness Hypertension Thyroid disorder Social History Smoking Status: Former smoker alcohol intake: current alcohol intake frequency: holidays/special occasions only substance use type: denies use current occupational status: employed Travel in the last 8 weeks: None [facility] Anesthesia Checklist Patient Identification Patient Identification: Arm Band Structural Data Admitted From: Home Planned Operative Procedure/s: Colonoscopy Consent for Planned Operative Procedure(s) Verified: Yes Verified Documents: Surgical Consent and History and Physical NPO Status Verified Time NPO: 00:00 Additional verifications Anesthesia Reactions: No Hx Blood Transfusions: No Blood Transfusion Reaction: No Airway Assessment Mallampati Score:: Class II C-Spine Mobility Assessed: Yes TMJ Mobility Assessed: Yes Dentition: Good Dentition Neurological Assessment Level of Consciousness: Awake, Alert and Appropriate Anesthesia Plan Anesthesia Risk discussed: Yes Anesthesia Plan: Verified ASA Class: II Anesthesia Type: MAC
[2023-10-28 09:32] VITALS: BP 107/63; PULSE 77; RESP 18; TEMP 36.5; O2SAT 98
[2023-10-28 09:42] VITALS: BP 116/69; PULSE 67; RESP 18; O2SAT 98
[2023-10-28 09:52] VITALS: BP 120/71; PULSE 66; RESP 18; O2SAT 100
[2023-10-28 10:01] VITALS: BP 116/76; PULSE 65; RESP 18; O2SAT 98
== END 2023-10-28 10:03 | disposition home or self-care (01) ==
PROVIDERS: PCP Nurse Practitioner Family; Visit Provider Surgery
PROC: 0DJD8ZZ Inspection of Lower Intestinal Tract, Via Natural or Artificial Opening Endoscopic (ICD-10-PCS; CPT 45378; principal; 2023-10-28 09:30)
DX: Z12.11 Encounter for screening for malignant neoplasm of colon (principal); K63.5 Polyp of colon
CPT/HCPCS: 45385; 81025; J2704; J7120